=== PATIENT | female | born 1975 | race Caucasian/White ===

== ENCOUNTER → 2016-12-11 | Outpatient (CLI) | payer OTHER | END | disposition home or self-care (01) | LOC: C.LABSPEC 16:15 | PROVIDERS: ATTEND Obstetrics & Gynecology | DX: N76.0 Acute vaginitis (principal) ==

== ENCOUNTER → 2017-06-18 | Day surgery (SDC) | payer OTHER ==
[2017-05-12 11:22] VITALS: Ht 172.7 cm; Wt 102.3 kg
[~2017-06-18] VITALS: Ht 172.7 cm; Wt 102.3 kg
[~2017-06-18] MED LIST: ACYC400T PO; ASCO10003 PO; ASPI325T45 PO; ATROPINE SULFATE 0.1 MG/ML 5ML SYR IV PRN; CHECK SCOPOLAMINE PATCH PLACEMENT SCH; DEXAMETHASONE SOD INJ 4 MG/ML VIAL ONE; EpHEDrine SULFATE INJ 50 MG/ML AMP IV PRN; FENTANYL CITRATE INJ 50 MCG/1 ML 2 ML VIAL IV PRN; FENTANYL CITRATE INJ 50 MCG/1 ML 2 ML VIAL ONE; FLUMAZENIL 0.1 MG/1 ML 10 ML VIAL IV PRN; GLUCTAB7 PO; HYDR200T5 PO; HYDROmorphone INJ 2 MG/ML SYR/VIAL IV PRN; IBUPROFEN 600 MG TAB PO PRN; KETOROLAC TROMETHAMINE 30 MG/ML VIAL IV. PRN; KETOROLAC TROMETHAMINE 30 MG/ML VIAL ONE; LABETALOL HCL IV 5 MG/ML 20ML IV PRN; LACTATED RINGER'S 1000ML 1,000 ML IV SCH; LIDOCAINE HCL 2% 2 ML VIAL (20MG/ML) ONE; MEPERIDINE HCL 25 MG/ML CARP IV PRN; METOCLOPRAMIDE HCL INJ 5 MG/ML 2 ML VIAL IV PRN; MIDAZOLAM HCL 1 MG/ML 2ML VIAL ONE; NALOXONE HCL 0.4 MG/1 ML VIAL/CARP IV PRN; ONDANSETRON INJ 2 MG/ML 2 ML VIAL IV PRN; ONDANSETRON INJ 2 MG/ML 2 ML VIAL ONE; OXYCODONE/ACETAMINOPHEN 5-325 TAB PO PRN; PHENYLEPHRINE 100MCG/ML 5ML SYR IV PRN; PROPOFOL IV EMULSION 10 MG/ML 20 ML VIAL IV ONE; SCOPOLAMINE 1.5 MG TDSY TD ONE; SODIUM CHLORIDE 0.9% 1000ML 1,000 ML IV SCH; VITA400C3 PO
--- NOTE | 2017-06-18 12:00 | History & Physical Bridge - [place] ---
H&P Re-Evaluation Bridge Note: I have examined the patient, reviewed the History & Physical and in the interval since the performance of the History & Physical I have noted the following changes of clinical significance: No changes noted
--- NOTE | 2017-06-18 12:04 | Discharge Instructions-SurgCtr ---
Discharge Instructions Date of Service Jun 18, 2017. Visit Reason for Visit: Abnormal Endometrial Ultrasound, Metrorrhagia Discharge Discharge Diagnosis / Problem: Hysteroscopy D&C Discharge Goals Goal(s): Specific goals Activity Recommendations Activity Limitations: per Instructions/Follow-up section Anesthesia . Post Anesthesia Instructions: If you have had General Anesthesia or IV Sedation: * Do not drive today. * Resume driving when surgeon permits. * Do not make important decisions or sign legal documents today. * Call surgeon for: 1. Temperature elevations greater than 101 degrees F. 2. Uncontrollable pain. 3. Excessive bleeding. 4. Persistent nausea and vomiting. 5. Medication intolerance (nausea, vomiting or rash). * For nausea and vomiting use only clear liquids such as: tea, soda, bouillon until nausea subsides, then gradually increase diet as tolerated. * If you have any concerns or questions, call your surgeon's office. If physician is unavailable and it is an emergency, call 911 or go to the nearest emergency room. . Instructions / Follow-Up Instructions / Follow-Up ACTIVITY RECOMMENDATIONS: * Avoid tampons, douching, hot tubs, pools, and intercourse until bleeding has stopped. * May shower as usual. * No strenuous activity for 24-48 hours. After 24-48 hours, you may do anything you feel like doing (driving and sports are okay). SPECIAL CARE INSTRUCTIONS: Special Diet: * Mild nausea may occur in the immediate post-operative period. * Take clear liquids such as tea, cola or bouillon until all nausea has subsided; you may then resume your normal diet. Special Care: * Light bleeding and vaginal spotting can last from a few days to 3-4 weeks. Call your doctor if bleeding becomes heavier than the heaviest part of your period. * Check your temperature twice a day for one week. If it goes above 100.4 degrees Fahrenheit (38.0 Celsius), notify your doctor. * Call your doctor's office for an appointment for 6 weeks after your surgery. FOLLOW-UP VISIT: Call your doctor's office for an appointment for 6 weeks after your surgery. Diet Recommendations Home Diet: resume previous diet Pending Studies Studies pending at discharge: no Medical Emergencies . Who to Call and When: Medical Emergencies: If at any time you feel your situation is an emergency, please call 911 immediately. . Non-Emergent Contact Non-Emergency issues call your: Primary Care Provider . . "Provider Documentation" section prepared by Jane Urena. . [place] Drug Monitoring Program Search Results: patient reviewed within database, no issues identified
--- NOTE | 2017-06-18 13:48 | [facility] Post Operative Brief Note ---
Immediate Operative Summary Operative Date Jun 18, 2017. Pre-Operative Diagnosis Abnormal Endometrial Ultrasound, AUB Post-Operative Diagnosis Same Procedure(s) Performed D&C Hysteroscopy Surgeon Dr. Jeremias Urena Assistant Corporate Secretary Surgeon(s) 0 Estimated Blood Loss 10cc Findings Consistent with Post-Op Diagnosis Specimens Endometrial curettings Drains None Anesthesia Type General Complication(s) none Disposition Accompanied Pt To Recovery: no Disposition: Recovery Room / PACU
[2017-06-18 14:33] VITALS: TEMP 36.6
--- NOTE | 2017-06-18 14:33 | OPERATIVE REPORT ---
DATE OF OPERATION: 06/18/2017 PREOPERATIVE DIAGNOSES: Abnormal endometrial ultrasound and abnormal uterine bleeding. POSTOPERATIVE DIAGNOSES: Same. PROCEDURE: D&C, hysteroscopy. SURGEON: Dr. Urena. HOLLOCK MAKER: None. ESTIMATED BLOOD LOSS: 10 mL FINDINGS: Thickened endometrium consistent with postoperative diagnoses. SPECIMENS: Endometrial curettings. DRAINS: None. ANESTHESIA: General. COMPLICATIONS: None. DISPOSITION: Stable to recovery. DESCRIPTION OF PROCEDURE: Amanda was placed on the table in the dorsal lithotomy position in [facility] stirrups, prepped and draped in standard sterile fashion and a hard time-out was taken prior to proceeding. The bladder was emptied of urine via straight catheterization for approximately 100 mL of mostly clear urine. Weighted and Lares speculum were introduced into the vagina. The anterior lip of the cervix was grasped with a single-tooth tenaculum. The uterus sounded to 9 cm and the cervix was then serially dilated to rule out passage of the hysteroscope. Of note, the uterus was retroflexed. The scope was introduced in the usual manner and was able to visualize the fundus. There were significant thickening of the endometrial browne ____ polypoid-type projection. The ostia were seen. It was rather difficult to locate them by swimming behind a fair number of polyps to get to them. The scope was then withdrawn and a sharp curette was used to retrieve a copious amount of endometrial tissue. At the completion of this, the scope was re-introduced and the cavity was seen to have been well cleared, the ostia now easily visible. All instruments were then retrieved and the patient's procedure was brought to completion. She was then transferred in stable condition to the recovery room. I attest to the content of the Intraoperative Record and any orders documented therein. Any exception s are noted below.
--- NOTE | 2017-06-18 14:41 | Anesthesia Progress Nt - [facility] ---
Anesthesia Post Op Note Date & Time Jun 18, 2017 at 14:41 Vital Signs Pain Intensity: 0 Vital Signs Past 12 Hours Date Time Temp Pulse Resp B/P (MAP) Pulse Ox O2 Delivery O2 Flow Rate FiO2 06/18/17 14:33 36.6 62 16 132/88 (103) 100 Room Air 06/18/17 14:27 60 20 100 06/18/17 14:27 60 20 06/18/17 14:26 133/76 06/18/17 14:25 36.5 60 20 133/76 100 Room Air 06/18/17 14:23 67 18 100 06/18/17 14:23 68 18 06/18/17 14:22 62 21 06/18/17 14:22 61 21 99 06/18/17 14:21 125/77 06/18/17 14:17 78 19 99 06/18/17 14:17 75 19 06/18/17 14:16 121/90 06/18/17 14:14 65 22 06/18/17 14:14 67 22 100 06/18/17 14:11 118/88 06/18/17 14:09 61 19 100 06/18/17 14:09 60 19 06/18/17 14:08 62 19 100 06/18/17 14:08 62 19 06/18/17 14:07 64 16 100 06/18/17 14:07 64 16 06/18/17 14:06 124/76 06/18/17 14:02 64 19 100 06/18/17 14:02 63 19 06/18/17 14:01 128/76 06/18/17 14:00 78 21 06/18/17 14:00 75 21 100 06/18/17 13:56 141/93 06/18/17 13:55 36.4 70 16 141/93 100 Mask 10 06/18/17 11:51 36.7 68 18 156/80 (105) 99 Room Air Notes Mental Status: alert / awake / arousable, participated in evaluation Pt Amnestic to Procedure: Yes Nausea / Vomiting: adequately controlled Pain: adequately controlled Airway Patency, RR, SpO2: stable & adequate BP & HR: stable & adequate Hydration State: stable & adequate Anesthetic Complications: no major complications apparent
[2017-06-18 14:57] VITALS: BP 156/85; PULSE 70; O2SAT 100
== END | disposition home or self-care (01) ==
LOC: X.SURG 11:33
PROVIDERS: ATTEND Obstetrics & Gynecology
DX: N93.9 Abnormal uterine and vaginal bleeding, unspecified (principal); N92.1 Excessive and frequent menstruation with irregular cycle; R93.8 Abnormal findings on diagnostic imaging of other specified body structures; E66.9 Obesity, unspecified; M32.9 Systemic lupus erythematosus, unspecified; Z80.49 Family history of malignant neoplasm of other genital organs; Z83.42 Family history of familial hypercholesterolemia; Z79.899 Other long term (current) drug therapy; Z79.82 Long term (current) use of aspirin